=== PATIENT | male | born 1995 | race Caucasian/White ===

== ENCOUNTER 2016-11-12 16:53 | Emergency (ER) | payer OTHER ==
[2016-11-12 16:59] VITALS: RESP 16; O2SAT 95
--- NOTE | 2016-11-12 17:31 | EDPHY ---
H & P Time Seen by Provider: 11/12/16 17:00 HPI/ROS: CHIEF COMPLAINT: Head injury HISTORY OF PRESENT ILLNESS: The patient is a 18-year-old male who presents to the emergency department with head injury. He works as a boiler welder. A piece of metal flung back and struck him in the head. He felt dazed for 2 seconds. He now has a hematoma on his forehead. He did not lose consciousness. He had mild nausea but no vomiting. No weakness, numbness or visual change. No neck pain. Patient has a mild headache at this time. REVIEW OF SYSTEMS: My complete review of systems is negative except as mentioned in the HPI. Past Medical/Surgical History: Negative Past surgical history: Denies Smoking Status: Never smoked Physical Exam: Vitals noted GENERAL: Well-appearing, in no acute distress, alert. HEENT: Eyes normal to inspection, normal pharynx, no signs of dehydration. Hematoma on the right forehead. Abrasion with no laceration. No crepitus. NECK: No thyromegaly, no lymphadenopathy, supple. Nexus negative RESPIRATORY: Clear to auscultation bilaterally, no rales, rhonchi or wheezing. CVS: Regular rate and rhythm, no rubs, murmurs, or gallops. ABDOMEN: Soft, nontender, nondistended, no organomegaly. BACK: Normal to inspection, no CVA tenderness. SKIN: Normal color, no rash, warm, dry. No pallor. EXTREMITIES: No pedal edema, no calf tenderness, no Homans sign or cords, no joint swelling. NEURO/PSYCH: Higher functions: Alert and Oriented x3. Normal speech and cognition. Normal mood and affect. Cranial nerves: Normal as tested. Cerebellar: Normal as tested. Good finger to nose, good [id number], normal gait. Peripheral exam: Normal motor exam. Normal sensation. Normal reflexes. Constitutional: Initial Vital Signs Temperature (C) 36.6 C 11/12/16 16:56 Heart Rate 78 11/12/16 16:56 Respiratory Rate 16 11/12/16 16:56 Blood Pressure 128/51 H 11/12/16 16:56 O2 Sat (%) 95 11/12/16 16:56 O2 Delivery Mode Room Air Allergies/Adverse Reactions: No Known Allergies Allergy (Unverified 11/12/16 16:59) Home Medications: Medication Instructions Recorded NK [No Known Home Meds] 11/12/16 Medical Decision Making ED Course/Re-evaluation: I discussed the findings with the patient. At this time I do not feel he needs a head CT. I discussed this with the patient answered all his questions. He is given warnings prior to leaving. He will return with worsening symptoms. Differential Diagnosis: My differential includes but is not limited to concussion, closed-head injury, abrasion, contusion, hematoma, subarachnoid hemorrhage, subdural hematoma, epidural hematoma, skull fracture Departure - Departure Disposition: Home, Routine, Self-Care Clinical Impression: Scalp hematoma Qualifiers: Encounter type: initial encounter Qualified Code(s): S00.03XA - Contusion of scalp, initial encounter Closed head injury Qualifiers: Encounter type: initial encounter Qualified Code(s): S09.90XA - Unspecified injury of head, initial encounter Condition: Good Instructions: Head Injury (ED) Additional Instructions: Return with increasing headache, weakness, vomiting, or any other concerns. Referrals: Alejandra Marie MD [Medical Doctor] - 5-7 days, if not improved
[2016-11-12 17:47] VITALS: BP 126/54; PULSE 74; TEMP 97.5
== END 2016-11-12 17:43 | disposition home or self-care (01) ==
DX: S00.03XA Contusion of scalp, initial encounter (principal); W22.8XXA Striking against or struck by other objects, initial encounter; Y92.69 Other specified industrial and construction area as the place of occurrence of the external cause; Y99.0 Civilian activity done for income or pay; Y93.89 Activity, other specified